=== PATIENT | female | born 1960 | race Caucasian/White ===

== ENCOUNTER → 2018-01-31 | Outpatient (CLI) | payer OTHER ==
[2018-01-31 11:56] LABS: Basophils % (A) 1 %; Eosinophils # (A) 0.1 k/uL (0-0.7); Eosinophils % (A) 1 %; HCT 46.9 % (34.0-46.0); HGB 15.6 gm/dL (11.4-16.0); Lymphocytes # (A) 1.1 k/uL (1.0-4.8); Lymphocytes % (A) 19 %; MCH 33.6 pg (25.0-35.0); MCHC 33.2 g/dL (31.0-37.0); Mean Platelet Volume 7.2; Monocytes # (A) 0.3 k/uL (0-1.0); Monocytes % (A) 6 %; Neutrophils # (A) 4.1 k/uL (1.3-7.7); Neutrophils % (A) 72 %; Platelet Count 269 k/uL (150-450); RBC 4.64 m/uL (3.80-5.40); RDW 12.9 % (11.5-15.5); WBC 5.7 k/uL (3.8-10.6)
--- NOTE | 2018-01-31 11:58 | ECHOS ---
STRESS ECHOCARDIOGRAM INDICATIONS: Chest pain, difficulty in breathing. MEDICATIONS: Lisinopril. BASELINE HEART RATE: 94 BASELINE BLOOD PRESSURE: 132/84 MAXIMUM HEART RATE: 159 MAXIMUM BLOOD PRESSURE: 180/98 85% MPHR: 139 100% MPHR: 164 METS: 7.1 MAXIMUM STAGE REACHED: 2 TOTAL EXERCISE TIME: 6:00 CLINICAL INFORMATION: Baseline heart rate 94 beats per minute. Baseline blood pressure 132/84 mmHg. Baseline 12-lead ECG shows sinus rhythm with normal ST segments. Patient exercised on Cody protocol for 6 minutes achieving a peak heart rate of 159 beats per minute. Normal blood pressure response to exercise. There was no ECG evidence for ischemia. No arrhythmias noted. Baseline 2D echo images showed normal LV size and systolic function without segmental wall motion abnormalities. At peak exercise, there was augmentation of overall LV contractility without developing any wall motion abnormalities. At recovery, regional global LV systolic function remained normal. IMPRESSION: No ECG or echocardiographic evidence for ischemia. No average exercise capacity. MMODL / IJN: [id number] /
[2018-01-31 12:16] LABS: Albumin 4.8 g/dL (3.5-5.0); Calcium 10.4 mg/dL (8.4-10.2); Potassium 4.3 mmol/L (3.5-5.1); Total Bilirubin 0.8 mg/dL (0.2-1.3); Total Protein 8.1 g/dL (6.3-8.2); Uric Acid 7.8 mg/dL (3.7-7.4)
[2018-01-31 12:29] LABS: T4, Free (Free Thyroxine) 1.12 ng/dL (0.78-2.19)
[2018-01-31 13:02] LABS: Appearance,Urine Cloudy (Clear); Bacteria,Urine Occasional /hpf; Bilirubin,Urine Negative (Negative); Blood,Urine Trace (Negative); Color,Urine Yellow; Glucose,Urine (UA) Negative (Negative); Hyaline Casts,Urine 34 /lpf (0-2); Ketones,Urine Negative (Negative); Leukocyte Esterase,Urine Large (Negative); Mucus,Urine Rare /hpf; Nitrite,Urine Negative (Negative); Protein,Urine Trace (Negative); RBC,Urine 2 /hpf (0-5); Specific Gravity,Urine 1.016 (1.001-1.035); Squamous Epithelial Cell,Urine 5 /hpf (0-4); Urobilinogen,Urine <2.0 mg/dL (<2.0); WBC,Urine 12 /hpf (0-5)
[2018-01-31 22:41] LABS: Hemoglobin A1C 5.2 % (4.0-6.0)
== END | disposition home or self-care (01) ==
LOC: RADNMMAIN 09:35
PROVIDERS: ATTEND Internal Medicine
DX: R07.89 Other chest pain (principal); I10 Essential (primary) hypertension; E78.00 Pure hypercholesterolemia, unspecified
CPT/HCPCS: 36415; 80053; 80061; 81001; 82550; 83036; 83735; 84439; 84443; 84550; 85025; 93351

== ENCOUNTER → 2018-02-27 | Outpatient (CLI) | payer OTHER ==
--- NOTE | 2018-02-27 20:19 | BD ---
EXAMINATION TYPE: Axial Bone Density DATE OF EXAM: 02/27/2018 COMPARISON: 06.04.2002 CLINICAL HISTORY: 57 YR OLD FEMALE.....ICD-10 CODE: M81.0 AGE RELATED OSTEOPOROSIS Height: 65.2 Weight: 171 FRAX RISK QUESTIONS: Family History (Parent hip fracture): NO FXs, BUT HX OF OSTEOPOROSIS RISK FACTORS HISTORY OF: HX OF LT FOREARM CHILD Family History of Osteoporosis: YES, HER MOTHER, AND GRANDMOTHER, NO HIP FXS Postmenopausal woman: YES, AT AGE 53 MEDICATIONS: Additional Medications: BP MEDS, Additional History: HYPERTENSION EXAM MEASUREMENTS: Bone mineral densitometry was performed using the [employer] System. Bone mineral density as measured about the Lumbar spine is: ----- L1-L4(G/cm2): 1.104 T Score Values are as follows: ----- L1: -1.1 ----- L2: -1.1 ----- L3: -1.0 ----- L4: 0.2 ----- L1-L4: -0.6 Bone mineral density has: Increased 5.2since study of: 06.04.2002 Bone mineral density about the R hip (g/cm2): 0.818 Bone mineral density about the L hip (g/cm2): 0.873 T Score values are as follows: -----R Neck: -2.0 -----L Neck: -2.0 -----R Total: -1.5 -----L Total: -1.1 Bone mineral density has: Increased 0.4since study of: 06.04.2002 FRAX%s: THERE IS A 8.3% CHANCE FOR A MAJOR OSTEOPOROTIC FX AND A 1.1% FOR HIP FX....PROBABILITY OF FX IN 10 YRS TIME IMPRESSION: Osteopenia (T Score between -2.5 and -1). There is slightly increased risk of fracture and the patient may be considered for treatment. Re-Screen 2-5 years. NOTE: T-SCORE=SD OF THE YOUNG ADULT MEAN.
--- NOTE | 2018-02-28 14:29 | MM ---
Reason for exam: screening (asymptomatic). Last mammogram was performed 15 years and 9 months ago. History: Patient is postmenopausal. Took hormonal contraceptives for 10 years. Physical Findings: A clinical breast exam by your physician is recommended on an annual basis and results should be correlated with mammographic findings. MG 3D Screening Mammo W/Cad Bilateral CC and MLO view(s) were taken. No prior studies available for comparison. The breast tissue is heterogeneously dense. This may lower the sensitivity of mammography. Distortion upper outer left breast posterior third position. ASSESSMENT: Incomplete: need additional imaging evaluation, BI-RAD 0 RECOMMENDATION: Special view mammogram of the left breast. If lesion persists on supplemental views, image directed ultrasound is recommended. [facility] will attempt to contact patient to return for supplemental views and ultrasound if indicated.
== END | disposition home or self-care (01) ==
LOC: RADMAMWWP 14:45
PROVIDERS: ATTEND Internal Medicine
DX: Z12.31 Encounter for screening mammogram for malignant neoplasm of breast (principal); M85.80 Other specified disorders of bone density and structure, unspecified site
CPT/HCPCS: 77063; 77067; 77080

== ENCOUNTER → 2018-03-19 | Outpatient (CLI) | payer OTHER ==
--- NOTE | 2018-03-20 12:13 | MM ---
Reason for exam: additional evaluation requested from abnormal screening. Last mammogram was performed 1 month ago. History: Patient is postmenopausal. Took hormonal contraceptives for 10 years. Physical Findings: Nurse did not find any significant physical abnormalities on exam. MG 3D Work Up W/Cad LT CC, spot compression MLO, and LM view(s) were taken of the left breast. Prior study comparison: February 27, 2018, bilateral MG 3d screening mammo w/cad. June 04, 2002, bilateral screening mammogram. Persistent distortion upper outer quadrant 8cm from nipple left breast. Ultrasound recommended. These results were verbally communicated with the patient and result sheet given to the patient on 03/19/18. ASSESSMENT: Incomplete: need additional imaging evaluation, BI-RAD 0 RECOMMENDATION: Ultrasound of the left breast.
--- NOTE | 2018-03-20 12:15 | USB ---
Reason for exam: additional evaluation requested from abnormal screening. History: Patient is postmenopausal. Took hormonal contraceptives for 10 years. US Breast Workup Limited LT Left limited breast ultrasound including focal area of concern, retroareolar and axilla demonstrates no cystic or solid lesion seen. Given persistent distortion on mammography MRI is recommended. These results were verbally communicated with the patient and result sheet given to the patient on 03/19/18. ASSESSMENT: Incomplete: need additional imaging evaluation, BI-RAD 0 RECOMMENDATION: Breast MRI of both breasts.
== END | disposition home or self-care (01) ==
LOC: RADMAMWWP 14:40
PROVIDERS: ATTEND Internal Medicine
DX: R92.8 Other abnormal and inconclusive findings on diagnostic imaging of breast (principal)
CPT/HCPCS: 77061; 77065

== ENCOUNTER → 2018-04-12 | Outpatient (CLI) | payer OTHER ==
--- NOTE | 2018-04-15 13:05 | BMR ---
EXAMINATION TYPE: MR breast BILAT wo/w con DATE OF EXAM: 04/12/2018 COMPARISON: 02/27/2018 and screening mammogram 03/29/2018 diagnostic mammogram and left breast ultras ound HISTORY: Inconclusive mammogram. Left upper outer quadrant architectural distortion approximately 8 c m from the nipple. TECHNIQUE: A series of fat and water weighted images in the long and short axis views of both breasts are obtained in conjunction with dynamic contrast MRI with subtraction technique. The patient was i njected with 7.5 mL intravenous Gadavist gadolinium contrast. Three-dimensional and additional post processing imaging is created on independent workstation and reviewed during official interpretation of this study. FINDINGS: The breasts are composed of heterogenous fibroglandular tissue. There is moderate bilateral symmetric background parenchymal enhancement, limiting sensitivity of the examination. There are scattered subcentimeter cysts seen bilaterally within both breasts. Ductal prominence is se en in the retroareolar left breast. Approximately 8 cm from the nipple in the left upper outer quadrant at the 2:30 position there is a f ocal area of none mass enhancement with distortion on T1 nonfat sat precontrast images 41 and 42. Thi s nonmass enhancement spans a distance of 1.9 cm seen on postcontrast T1 fat sat series 701 image 247 . This demonstrates persistent kinetics with few small foci of plateau kinetics. Caudal to this at th e 3:00 position approximately 5 cm to the nipple in the upper outer quadrant of the left breast there is a 3.3 cm region of nonmass enhancement with similar kinetics. No suspicious mass or nonmass enhancement is seen on the right. Numerous foci of enhancement are angelita table to background parenchymal enhancement and display predominantly persistent kinetics. No suspicious axillary, internal mammary or intramammary adenopathy is seen within either breast. IMPRESSION: 1. BI-RADS 4C-Suspicious. Tissue diagnosis is recommended. It is suspected that the area of distortio n on mammography corresponds to an area of nonmass enhancement at the 2:30 position within the left b reast approximately 8 cm from the nipple, however the finding is more suspicious on mammography and t herefore 3-D guided stereotactic biopsy is recommended for definitive diagnosis. Subsequently single sequence MRI (T1 weighted axial sequence) would be recommended to ensure accurate correlation of the biopsy marker with the MRI finding. Pending pathologic tissue positivity additional MRI guided biopsy of a second area of nonmass enhancement at the 3:00 position in the left breast would be recommended if the patient desires breast conservation. 2. No suspicious mass or nonmass enhancement within the right breast. 3. No suspicious axillary, internal mammary, or intramammary adenopathy.
== END | disposition home or self-care (01) ==
LOC: RADMRIMAIN 12:54
PROVIDERS: ATTEND Internal Medicine
DX: R92.2 Inconclusive mammogram (principal); Z01.812 Encounter for preprocedural laboratory examination
CPT/HCPCS: 82565; 77059; 36415; 0159T; A9585

== ENCOUNTER → 2018-06-06 | Day surgery (SDC) | payer OTHER ==
[2018-06-06 10:02] VITALS: BP 136/94; PULSE 75; RESP 18; TEMP 97.4; BMI 26.6
--- NOTE | 2018-06-06 16:45 | MM ---
EXAMINATION TYPE: MG discontinued stereo core LT DATE OF EXAM: 06/06/2018 COMPARISON: Mammographic images 02/27/2018 and 03/19/2018. Ultrasound of 03/19/2018 and MRI 04/12/2018 is reviewed. CLINICAL HISTORY: Architectural distortion left breast mammogram TECHNIQUE: Stereotactic guided core biopsy of left breast FINDINGS: The procedure of stereotactic guided core biopsy was explained to the patient. Benefits, a lternatives, and risks were discussed. An informed consent was then obtained. Specific discussion r egarding the findings on tomography be difficult to identify stereo were discussed. Patient was brought to the stereotactic biopsy was. Multiple attempts for localization performed incl uding orthogonal view imaging. A distortion region could not be identified and no targeting could be performed. Procedure was aborted prior to skin incision. We alternatives were discussed patient. Three-D biopsy is recommended to identify the distortion in u tilized for targeting purposes. The options notified of the aborted procedure. IMPRESSION: 1. Biopsy aborted prior to skin incision. Recommendations: 1. 3-D tomographic targeting for biopsy is recommended. The alternative would be wire localization.
== END ==
LOC: RADMAMWWP 08:50
PROVIDERS: ATTEND Surgery
DX: R92.8 Other abnormal and inconclusive findings on diagnostic imaging of breast (principal); Z53.8 Procedure and treatment not carried out for other reasons; Z88.1 Allergy status to other antibiotic agents; Z88.0 Allergy status to penicillin

== ENCOUNTER 2018-11-26 07:04 | Day surgery (SDC) | payer OTHER ==
[2018-11-20 14:46] VITALS: BMI 27.8
[~2018-11-26 07:04] MED LIST: ALPRAZolam 0.5 MG TAB PO PRN; DEXAMETHASONE SOD PHOSPHATE 10 MG/ML 1 ML VIAL IV ONE; HEPARIN SODIUM,PORCINE 5,000 UNIT/ML 1 ML VIAL SQ ONE; HYDROmorphone 0.5 MG/0.5 ML SYRINGE IVP PRN; LACTATED RINGERS 1,000 ML IV SCH; ONDANSETRON 4 MG/2 ML VIAL IVP ONE; Pre Op ABX Message 1 EACH MISC MISCELLANE ONE
--- NOTE | 2018-11-26 08:19 | P.GSHP ---
History of Present Illness H&P Date: 11/26/18 Chief Complaint: Abnormal left mammogram 58-year-old female seen in the office in May of this year. Patient had recent mammogram and ultrasound showing an area of distortion upper outer aspect left breast. Patient otherwise asymptomatic with no family history of breast cancer. MRI was performed following that in stereo biopsy of the area of distortion was advised. Ultrasound second look did not reveal any specific abnormality. Patient underwent stereotactic core biopsy left breast at [facility]. Pathology reveals evidence of radial scar with microcalcifications. This was felt to be mammographically concordant and surgical excision was advised. Past Medical History Past Medical History: Hypertension Additional Past Medical History / Comment(s): Osteopenia (Takes fosamax 70mg weekly) History of Any Multi-Drug Resistant Organisms: None Reported Additional Past Surgical History / Comment(s): bilateral cataract removed via lasik sx 2017, laparoscopic sx for endometriosis , LT BREAST BX Past Anesthesia/Blood Transfusion Reactions: Motion Sickness Additional Past Anesthesia/Blood Transfusion Reaction / Comment(s): No blood transfusion to date Past Psychological History: No Psychological Hx Reported Smoking Status: Former smoker Past Alcohol Use History: Occasional Additional Past Alcohol Use History / Comment(s): QUIT SMOKING 28 YEARS AGO Past Drug Use History: None Reported Additional Drug Use History / Comment(s): Smoked socially as a teenager/early 20's (never a regular smoker) - Past Family History Mother Family Medical History: Cancer, Myocardial Infarction ([place]) Additional Family Medical History / Comment(s): at age 73 from lung cancer, CABG x2 Father Family Medical History: No Reported History Brother(s) Family Medical History: No Reported History Medications and Allergies Home Medications Medication Instructions Recorded Confirmed Type Lisinopril-Hctz 10-12.5 mg 1 tab PO DAILY 06/05/18 11/20/18 History [Zestoretic 10-12.5] Allergies Allergy/AdvReac Type Severity Reaction Status Date / Time adhesive Allergy Rash/Hives Verified 11/20/18 14:39 azithromycin Allergy Rash/Hives Verified 11/20/18 14:39 Penicillins Allergy Rash/Hives Verified 11/20/18 14:39 Surgical - Exam Vital Signs Temp Pulse Resp BP Pulse Ox 97.9 F 72 20 150/89 100 11/26/18 07:42 11/26/18 07:42 11/26/18 07:42 11/26/18 07:42 11/26/18 07:42 Physical exam: General: Well-developed, well-nourished HEENT: Normocephalic, sclerae nonicteric Abdomen: Nontender, nondistended Extremities: No edema Neuro: Alert and oriented Right breast, no masses, no adenopathy Left breast: No masses, no adenopathy Assessment and Plan (1) Abnormal mammogram of left breast Narrative/Plan: 58-year-old female with abnormal left mammogram and MRI with biopsy showing radial scar. We'll proceed with left breast wire localization for confirmation that no atypia or malignancy is present. Risks of bleeding, infection, numbness, scarring, possible need for additional surgery reviewed. She understands and wishes to proceed. Current Visit: Yes Status: Acute Code(s): R92.8 - OTH ABN AND INCONCLUSIVE FINDINGS ON DX IMAGING OF BREAST SNOMED Code(s): 810918863
[2018-11-26] MEDS ORDERED: LIDOCAINE 1% INJ 10MG/ML (20 ML MDV) SQ ONE (09:23)
[2018-11-26 09:25] VITALS: RESP 16
[2018-11-26] MEDS ORDERED: BUPIVACAIN-EPI 0.25%-1:200,000 30 ML VIAL SQ ONE (11:28)
[2018-11-26] MEDS ORDERED: KETOROLAC 30 MG/ML 1 ML VIAL ONE (11:29)
[2018-11-26] MEDS ORDERED: LIDOCAINE 1% INJ 10MG/ML (20 ML MDV) ONE (11:29)
[2018-11-26] MEDS ORDERED: PROPOFOL 10 MG/ML 20 ML VIAL IV ONE (11:29)
[2018-11-26] MEDS ORDERED: HYDROmorphone (PF) 1 MG/ML ONE (11:29)
[2018-11-26] MEDS ORDERED: MIDAZOLAM 2 MG/2 ML VIAL ONE (11:29)
[2018-11-26] MEDS ORDERED: fentaNYL (PF) 50 MCG/ML 2 ML AMP ONE (11:29)
[2018-11-26] MEDS ORDERED: CLINDAMYCIN 150 MG/ML 4 ML VIAL IVPB ONE (11:55)
[2018-11-26] MEDS ORDERED: NALOXONE 0.4 MG/ML 1 ML VIAL IV PRN (12:27)
[2018-11-26] MEDS ORDERED: HYDROcodone/APAP 5-325MG 1 EACH TAB PO PRN (12:27)
--- NOTE | 2018-11-26 12:30 | P.OP ---
Date of Procedure: 11/26/18 Procedure(s) Performed: PREOPERATIVE DIAGNOSIS: Abnormal left mammogram POSTOPERATIVE DIAGNOSIS: Same PROCEDURE: Left Breast wire localization biopsy SURGEON: Gian EBL: 10 mL ANESTHESIA: General COMPLICATIONS: None OPERATIVE PROCEDURE: Patient was placed on the operating room table in the supine position. The patient's breast was prepped and draped in usual sterile fashion. A curvilinear incision was made adjacent to the wire entrance site. I followed the wire down into the breast tissue. The breast tissue around the tip of the wire was fully excised using electrocautery. A small area of bleeding was seen. A vessel was clipped using the Ligaclip. The previously placed biopsy clip was visible grossly. The specimen was sent for specimen radiogram. The subcutaneous tissues were inspected. No bleeding was seen. The subcutaneous tissues were closed using 3-0 Vicryl sutures. The skin was closed using a running 4-0 Monocryl stitch. Skin glue was then applied. DISPOSITION: Stable to recovery room
[2018-11-26 12:34] VITALS: TEMP 97.1
--- NOTE | 2018-11-26 12:52 | MM ---
EXAMINATION TYPE: MG pre op needle loc LT, MG surgical specimen LT DATE OF EXAM: 11/26/2018 COMPARISON: 02/17/2018 CLINICAL HISTORY: Left upper outer quadrant biopsy-proven radial scar corresponding to the distortion seen on mammogram, concordant for which needle localization for excision was recommended. TECHNIQUE: Needle localization with wire placement and surgical excision of area of concern in the left breast. FINDINGS: The procedure of needle localization with wire placement and than surgical excision was explained to the patient. Benefits, alternatives, and risks were discussed. An informed consent was then obtained. Preprocedural timeout was performed. The shortest pathway for procedure was chosen. Shortest pathway was lateral to medial approach. The overlying skin was prepped and draped in usual sterile fashion. 15 cc of 1% lidocaine was used as anesthetic into the skin and subcutaneous tissue up to the level of area of concern. A 5 cm needle was used. It was placed via a lateral to medial approach under mammographic guidance. Subsequent 90 degrees mammogram show the needle to be in satisfactory position relative to the targeted area. At this point, wire was placed and the needle was withdrawn. The wire was fixed to patient's skin. Images were marked for surgeon. The patient tolerated the procedure well without any immediate complication. The patient was kept in the radiology department for short stay after the procedure and then taken to surgery for surgical excision. Targeted distortion and T-shaped biopsy marker and wire are identified in specimen mammogram. The patient was kept in hospital for short stay after the procedure and then discharged home in stable condition. IMPRESSION: Successful, uncomplicated needle localization with wire placement and surgical excision of targeted distortion and biopsy marker in the left breast, full pathology results to follow. Pathology Results: High Risk LEFT BREAST, NEEDLE LOCALIZATION EXCISION: Focal atypical ductal hyperplasia (ADH), margins negative. Background proliferative fibrocystic changes including radial scar with calcifications, sclerosing adenosis, columnar cell change, moderate usual type ductal hyperplasia, cysts and apocrine metaplasia. Scar consistent with previous biopsy site. Recommendation Follow up mammogram of the left breast in 6 months. [facility]
[2018-11-26 14:05] VITALS: BP 126/82; PULSE 69
== END 2018-11-26 14:37 | disposition home or self-care (01) ==
LOC: OR 07:04
PROVIDERS: ATTEND Surgery
DX: N60.92 Unspecified benign mammary dysplasia of left breast (principal); N60.12 Diffuse cystic mastopathy of left breast; I10 Essential (primary) hypertension; M85.80 Other specified disorders of bone density and structure, unspecified site; Z79.83 Long term (current) use of bisphosphonates; Z87.891 Personal history of nicotine dependence; Z88.0 Allergy status to penicillin; Z98.42 Cataract extraction status, left eye; Z98.41 Cataract extraction status, right eye; Z80.1 Family history of malignant neoplasm of trachea, bronchus and lung; Z82.49 Family history of ischemic heart disease and other diseases of the circulatory system; Z88.8 Allergy status to other drugs, medicaments and biological substances; Z88.1 Allergy status to other antibiotic agents
CPT/HCPCS: 19301; 88307; 76098; 19281; J2250; J1644; J1100; J2405; J2001; J3010; J1885; J1170; J2704

== ENCOUNTER → 2019-06-02 | Outpatient (CLI) | payer OTHER ==
--- NOTE | 2019-06-02 10:21 | MM ---
Reason for exam: additional evaluation requested from prior study. Last mammogram was performed 1 year and 2 months ago. History: Patient is postmenopausal and has history of high-risk lesion on a previous biopsy at age 58. High risk MG pre op needle loc LT of the left breast, November 26, 2018. MG discontinued stereo core LT of the left breast, June 06, 2018. Took hormonal contraceptives for 10 years. Physical Findings: Nurse did not find any significant physical abnormalities on exam. MG 3D Diag Mammo W/Cad JAYLA Bilateral CC and MLO view(s) were taken. Prior study comparison: March 19, 2018, left breast MG 3d work up w/cad LT. February 27, 2018, bilateral MG 3d screening mammo w/cad. The breast tissue is heterogeneously dense. This may lower the sensitivity of mammography. Post surgical changes left breast. No significant new findings when compared with previous films. These results were verbally communicated with the patient and result sheet given to the patient on 06/02/19. ASSESSMENT: Benign, BI-RAD 2 RECOMMENDATION: Follow-up diagnostic mammogram of both breasts in 1 year.
== END | disposition home or self-care (01) ==
LOC: RADMAMWWP 09:25
PROVIDERS: ATTEND Surgery
DX: R92.8 Other abnormal and inconclusive findings on diagnostic imaging of breast (principal)
CPT/HCPCS: 77062; 77066

== ENCOUNTER → 2021-06-22 | Outpatient (CLI) | payer OTHER ==
--- NOTE | 2021-06-22 10:17 | MR ---
EXAMINATION TYPE: MR lumbar spine wo con DATE OF EXAM: 06/22/2021 COMPARISON: None HISTORY: 60-year-old female G62.9 Neuropathy, no feeling in feet or toes TECHNIQUE: Multiplanar, multisequence images of the lumbar spine were acquired without IV contrast. FINDINGS: Number of sacral Tarlov cysts are noted bilaterally, measuring up to 1.7 cm on the right and 2.1 cm o n the left. Mild multilevel degenerative disc disease with a mild disc desiccation and minimal disc bulging. Ligamentum flavum thickening mid to lower lumbar spine along with marked hypertrophic facet arthropat hy lower lumbar spine. There is trace grade 1 anterolisthesis at L4-L5. Remaining alignment is maintained. Mild chronic-appearing superior endplate deformity at T12. Conus medullaris is normal. At T12-L1, no significant canal or foraminal stenosis. At L1-L2, no significant canal or foraminal stenosis. At L2-L3, no significant canal or foraminal stenosis. At L3-L4, minimal bulging discs and mild facet arthropathy. No significant canal or foraminal stenosi s. At L4-L5, advanced hypertrophic facet arthropathy with small joint effusions, trace grade 1 anterolis thesis, ligamentum flavum thickening. Minimal bulging disc. There is mild attenuation of the thecal s ac. Artifact but no significant spinal canal stenosis. No significant neural foraminal stenosis. At L5-S1, mild disc bulge and tiny left paracentral disc protrusion. Advanced hypertrophic facet arth ropathy. Disc material closely approaches but does not clearly abut the traversing left S1 nerve root , sagittal image 6. No significant canal or foraminal stenosis. No suspicious bone marrow replacement. No prevertebral or paravertebral soft tissue abnormality. IMPRESSION: 1. Mild multilevel degenerative disc disease. Ligamentum flavum thickening mid lumbar spine. Advanced hypertrophic facet arthropathy lower lumbar spine with trace grade 1 anterolisthesis L4-L5. 2. Tiny left paracentral disc protrusion at L5-S1 closely approaches but does not clearly abut the tr aversing left S1 nerve root. Otherwise, no significant canal or foraminal stenosis seen. 3. Numerous bilateral sacral Tarlov cysts measuring up to 2.1 cm. 4. Incidental old superior endplate compression injury of T12.
== END | disposition home or self-care (01) ==
LOC: RADMRIMAIN 07:46
PROVIDERS: ATTEND Internal Medicine
DX: M51.36 Other intervertebral disc degeneration, lumbar region (principal); M47.816 Spondylosis without myelopathy or radiculopathy, lumbar region; M51.27 Other intervertebral disc displacement, lumbosacral region; M43.16 Spondylolisthesis, lumbar region; G96.191 Perineural cyst
CPT/HCPCS: 72148